=== PATIENT | female | born 1990 | race Caucasian/White ===

== ENCOUNTER 2021-01-03 13:17 | Emergency (ER) | payer OTHER, SELFPAY ==
[2021-01-03] VITALS (8 sets, daily range): BP systolic 114–135; BP diastolic 72–81; PULSE 74–88; RESP 16–20; TEMP 36.7–36.8; O2SAT 99–100
--- NOTE | ~2021-01-03 | US_ITS ---
EXAMINATION: US OB follow up DATE: 01/03/2021 14:31 INDICATION: Pelvic pain. TECHNIQUE: Real-time ultrasound of the pelvis was performed. COMPARISON: None. FINDINGS: There is a single living fetus in transverse lie. The placenta is posterior, 4.3 cm from the cervix. heart rate is 142 beats per minute (bpm). The cervical length is normal on transabdominal imag es. The amniotic fluid volume is subjectively normal. The following biometric data were obtained: Biparietal diameter (BPD): 4.2 cm; head circumference (HC): 15.5 cm; abdominal circumference (AC): 13 .5 cm; femur length (FL): 2.9 cm. These measurements are concordant. Estimated weight is 258 g +/- 39 g, which correlates with 83rd percentile when 06/05/21 is used as estimated date of delivery. As single measurements, these parameters are each equal to the following estimated gestational ages: BPD: 18 weeks 5 days. HC: 18 weeks 3 days. AC: 18 weeks 6 days. FL: 18 weeks 5 days. estimated gestational age based solely on measurements from this exam is 18 weeks 5 days +/- 1 weeks 2 days. IMPRESSION: 1. Single living fetus in transverse lie. 2. Estimated weight is 258 g +/- 39 g, which correlates with 83rd percentile when 06/05/21 is u sed as estimated date of delivery. Reviewed, dictated and finalized at location A. [employer] IMPRESSION: 1. Single living fetus in transverse lie. 2. Estimated weight is 258 g +/- 39 g, which correlates with 83rd percen tile when 06/05/21 is used as estimated date of delivery.
[2021-01-03] MEDS: SODIUM CHLORIDE 0.9% IV 1,000 ML 999 ML IV CONT (15:00)
[2021-01-03 15:07] LABS: Add Urine Microscopic? YES; Appearance Urine Cloudy (Clear); Bacteria Urine Trace /hpf; Bilirubin Urine Negative (Negative); Blood Urine Negative (Negative); Color Urine Yellow (Yellow); Glucose Urine UA Negative (Negative); Ketones Urine Trace mg/dL (Negative); Leukocyte Esterase Ur 2+ LEU/UL (Negative); Mucus Urine Rare /lpf; Nitrate Urine Negative (Negative); Protein Urine Negative (Negative); Specific Grav Ur 1.005 (1.001-1.035); Squamous Epithelial Cell Urine Few /hpf (Few); Urobilinogen Urine Negative mg/dL (<2.0)
[2021-01-03 15:21] LABS: Basophils Percent Auto 0.3 % (0.2-1.2); Eosinophils Absolute Auto 0.4 K/mm3 (0-0.3); Eosinophils Percent Auto 4.1 % (0-4.4); Hematocrit 33.3 % (37.0-47.0); Hemoglobin 11.5 g/dL (12.0-15.0); Immature Granulocyte Absolute 0.04 K/mm3 (0.00-0.031); Immature Granulocyte Percent A 0.4 % (0-0.5); Lymphocytes Absolute Auto 1.52 K/mm3 (0.9-3.2); Lymphocytes Percent Auto 14.5 % (18.3-44.2); Mean Corpuscular HGB Conc 34.5 g/dl (32-36); Mean Corpuscular Hemoglobin 30.5 pg (26-34); Mean Corpuscular Volume 88.3 fl (80-100); Mean Platelet Volume 9.8 fl (7.4-10.4); Monocytes Absolute Auto 0.7 K/mm3 (0.1-0.6); Monocytes Percent Auto 6.2 % (2.6-8.5); Neutrophils Absolute Auto 7.8 K/mm3 (1.3-6.7); Neutrophils Percent Auto 74.5 % (45.5-73.1); Platelet Count Result 193 k/mm3 (150-375); Red Blood Count 3.77 M/mm3 (4.2-5.4); Red Cell Distribution Width 13.2 % (11.5-14.5); White Blood Count 10.5 K/mm3 (4.5-10.0)
[2021-01-03 15:38] LABS: Alanine Aminotransferase 12 U/L (4-35); Alkaline Phosphatase 56 U/L (38-126); Anion Gap 7 mmol/L (8-16); Aspartate Amino Transferase 22 U/L (14-36); Bilirubin,Total 0.1 mg/dL (0.2-1.3); Blood Urea Nitrogen 8 mg/dL (7-17); Calcium 9.2 mg/dL (8.4-10.2); Carbon Dioxide 24 mmol/L (22-30); Chloride 105 mmol/L (98-107); Estimated CRCL calculation 168 ml/min; Estimated Glomerular Filt Rate > 60; Glucose 83 mg/dL (65-110); Potassium 3.7 mmol/L (3.4-5.0); Sodium 136 mmol/L (137-145)
--- NOTE | 2021-01-03 15:58 | ED.ABDPAIN ---
HPI - Abdominal Pain General Chief Complaint: Abdominal Pain Stated Complaint: 18 weeks , cramping Time Seen by Provider: 01/03/21 13:58 Source: patient History of Present Illness HPI narrative: Patient is prior 6 weeks miscarriage is approximately 18 weeks by LMP presents with abdominal pain. Pain started. Has been getting worse with Dr. STORM referred to the ER for evaluation. She reports scant vaginal discharge has been stable throughout her denies any vaginal bleeding she denies any urinary symptoms denies any trauma lightheadedness or dizziness Related Data Home Medications Medication Instructions Recorded Confirmed fluoxetine [Prozac] 20 mg PO DAILY 01/03/21 (w/o vit A)-Fe fum-FA tablet PO 01/03/21 [PreCare ] Allergies Allergy/AdvReac Type Severity Reaction Status Date / Time No Known Allergies Allergy Verified 01/03/21 13:43 Review of Systems Review of Systems: CONSTITUTIONAL: Denies fever, chills, or sweats. EYES: Denies visual changes, redness, or discharge. ENT: Denies rhinorrhea, congestion, sore throat, or otalgia. CARDIOVASCULAR: Denies chest pain, palpitations, or edema. RESPIRATORY: Denies cough or dyspnea. GASTROINTESTINAL: Denies nausea, vomiting, or diarrhea. GENITOURINARY: Denies dysuria or hematuria. SKIN: Denies rash or itching. MUSCULOSKELETAL: Denies back pain, joint pain, or myalgia. NEUROLOGIC: Denies headache, numbness, dizziness, or weakness. PSYCHIATRIC: Denies anxiety or depression. All systems reviewed & are unremarkable except as noted in HPI and below PMFSH Past Medical History Medical History (Updated 01/03/21 @ 16:07 by George Etienne MD) Prior miscarriage with in first trimester, antepartum Social History Social History (Updated 01/03/21 @ 16:05 by George Etienne MD) Smoking status: Never smoker Exam Narrative: GENERAL: Well-appearing, well-nourished, and in no acute distress. HEAD: Normocephalic, atraumatic. EYES: PERRLA and EOMI. ENT: Nares clear, no rhinorrhea or epistaxis. Mucous membranes moist. NECK: Supple. No masses. No JVD ABDOMEN: Mild diffuse tenderness with deep palpation no rebound or guarding soft, nondistended, normal active bowel sounds. EXTREMITIES: Normal range of motion. No edema. SKIN: Warm, dry, no rash. NEURO: No focal deficits. Alert and oriented x3. PSYCH: Normal mood and affect. Course Reevaluation(s) Reevaluation #1: Patient reports feeling improved results and plan reviewed with patient. Patient comfortable with outpatient plan. Date: 01/03/21 Time: 16:05 Vital Signs Vital signs: Vital Signs Temperature 36.7 C 01/03/21 13:25 Pulse Rate 80 01/03/21 13:25 Respiratory Rate 18 01/03/21 13:25 Blood Pressure 135/81 01/03/21 13:25 Pulse Oximetry 100 01/03/21 13:25 Temperature 36.7 C 01/03/21 13:25 Pulse Rate 80 01/03/21 13:25 Respiratory Rate 18 01/03/21 13:25 Blood Pressure 135/81 01/03/21 13:25 Pulse Oximetry 100 01/03/21 13:25 MDM - Abdominal Pain MDM Narrative Medical decision making narrative: H&P as above, vss, pt looks clinically well, exam nonacute abdomen, labs clinically unremarkable, img with viable IUP, additional labs/img considered, symptomatic relief available as needed, on reevaluation pt continues to looks clinically well. Suspect pain related to , dns miscarriage, ectopic, abruption, perforation. plan to tx/monitor as op w/ OB f/u findings/plan discussed with pt, pt agree/comfortable with plan, return precautions given Lab Data Result diagrams: 01/03/21 15:03 01/03/21 15:03 Labs: Lab Results 01/03/21 01/03/21 01/03/21 Range/Units 14:56 14:58 15:03 WBC 10.5 H (4.5-10.0) K/mm3 RBC 3.77 L (4.2-5.4) M/mm3 Hgb 11.5 L (12.0-15.0) g/dL Hct 33.3 L (37.0-47.0) % MCV 88.3 (80-100) fl MCH 30.5 (26-34) pg MCHC 34.5 (32-36) g/dl RDW 13.2 (11.5-14
== END 2021-01-03 16:30 | disposition home or self-care (01) ==
PROVIDERS: Emergency Provider Emergency Medicine; PCP Family Medicine
DX: O26.892 Other specified pregnancy related conditions, second trimester (principal); R10.9 Unspecified abdominal pain; Z3A.18 18 weeks gestation of pregnancy
CPT/HCPCS: 36415; 76816; 80053; 81001; 84702; 85025; 86900; 86901; 96360; 99284; J7030

== ENCOUNTER 2021-04-27 12:22 | Observation (INO) | payer OTHER, SELFPAY ==
[2021-04-27 12:57] VITALS: BMI 40.7
--- NOTE | 2021-04-27 12:57 | OBADM ---
This patient, Shyanne Kincaid, admitted to the OB room OB Post 111 for observation. Patient/family oriented to hospital policies and general routines including ID bracelet, bed and alarms, visiting hours, pain management, procedures, bathroom and other care routines, personal items, smoking policy, room service/diet, and visiting hours. Patient/Family are encouraged to report perceived risks to care and to ask questions if they do not understand what they are told or what they should do.
[2021-04-27 13:07] VITALS: BP 136/81; PULSE 82
[2021-04-27 13:16] VITALS: BP 124/82; PULSE 79
[2021-04-27 13:31] VITALS: BP 128/86; PULSE 82
[2021-04-27 13:46] LABS: Add Urine Microscopic? YES; Appearance Urine Cloudy (Clear); Bacteria Urine 1+ /hpf; Bilirubin Urine Negative (Negative); Blood Urine Negative (Negative); Color Urine Yellow (Yellow); Glucose Urine UA Negative (Negative); Ketones Urine Negative (Negative); Leukocyte Esterase Ur 2+ LEU/UL (Negative); Mucus Urine Rare /lpf; Nitrate Urine Negative (Negative); Protein Urine Negative (Negative); Specific Grav Ur 1.012 (1.001-1.035); Squamous Epithelial Cell Urine Many /hpf (Few); Urobilinogen Urine Negative mg/dL (<2.0); WBC Urine >75 /hpf
[2021-04-27 14:01] VITALS: BP 119/84; PULSE 80
[2021-04-27 14:31] VITALS: BP 122/86; PULSE 75
--- NOTE | 2021-04-30 21:05 | PM.OBTRLD ---
OB - Triage/Final Diagnosis Visit Information Comments/Additional reasons for admission: I have assessed the risk for this patient, Shyanne Kincaid, and determined that she would benefit from observation care. Evaluation Laboratory results: Laboratory Tests 04/27/21 13:11 Urine Color Yellow Urine Appearance Cloudy H Urine pH 7.0 Ur Specific [place] 1.012 Urine Protein Negative Urine Glucose (UA) Negative Urine Ketones Negative Ur Blood (Man) Negative Urine Nitrate Negative Urine Bilirubin Negative Urine Urobilinogen Negative Leukocyte Esterase Rfl 2+ H Urine RBC 3-5 H Urine WBC >75 H Ur Squamous Epith Cells Many H Urine Bacteria 1+ H Urine Mucus Rare Final Diagnosis (1) Nausea/vomiting in : Code(s): O21.9 - Vomiting of , unspecified Status: Acute
== END 2021-04-27 14:38 | disposition home or self-care (01) ==
PROVIDERS: Admitting Provider Obstetrics & Gynecology; PCP Family Medicine; Visit Provider Obstetrics & Gynecology
DX: O21.9 Vomiting of pregnancy, unspecified (principal); Z3A.34 34 weeks gestation of pregnancy
CPT/HCPCS: 81001; 84112; 87077; 87086; 87088; G0378; G0379

== ENCOUNTER 2021-05-22 14:41 | Observation (INO) | payer OTHER, SELFPAY ==
--- NOTE | 2021-05-22 15:28 | OBADM ---
This patient, Shyanne Kincaid, admitted to the OB room Labor/Delivery/Recovery 106 for observation. Patient/family oriented to hospital policies and general routines including ID bracelet, bed and alarms, visiting hours, pain management, procedures, bathroom and other care routines, personal items, smoking policy, room service/diet, and visiting hours. Patient/Family are encouraged to report perceived risks to care and to ask questions if they do not understand what they are told or what they should do.
--- NOTE | 2021-06-05 07:40 | PM.OBTRLD ---
OB - Triage/Final Diagnosis Visit Information Comments/Additional reasons for admission: I have assessed the risk for this patient, Shyanne Kinacid, and determined that she would benefit from observation care. Final Diagnosis (1) Gestational hypertension: Code(s): O13.9 - Gestational [-induced] hypertension without significant proteinuria, unspecified trimester Status: Acute
== END 2021-05-22 15:45 | disposition home or self-care (01) ==
PROVIDERS: Admitting Provider Obstetrics & Gynecology; PCP Family Medicine; Visit Provider Obstetrics & Gynecology
DX: O13.3 Gestational [pregnancy-induced] hypertension without significant proteinuria, third trimester (principal); Z3A.38 38 weeks gestation of pregnancy
CPT/HCPCS: G0378; G0379

== ENCOUNTER 2021-05-28 14:30 | Inpatient (IN) | payer OTHER, SELFPAY ==
[2021-05-28] VITALS (18 sets, daily range): BP systolic 137–153; BP diastolic 84–95; PULSE 65–100; BMI 39.4
[2021-05-28 15:11] LABS: Basophils Percent Auto 0.4 % (0.2-1.2); Eosinophils Absolute Auto 0.3 K/mm3 (0-0.3); Eosinophils Percent Auto 3.7 % (0-4.4); Hematocrit 32.9 % (37.0-47.0); Hemoglobin 11.4 g/dL (12.0-15.0); Immature Granulocyte Absolute 0.04 K/mm3 (0.00-0.031); Immature Granulocyte Percent A 0.5 % (0-0.5); Lymphocytes Absolute Auto 1.44 K/mm3 (0.9-3.2); Lymphocytes Percent Auto 17.6 % (18.3-44.2); Mean Corpuscular HGB Conc 34.7 g/dl (32-36); Mean Corpuscular Hemoglobin 30.6 pg (26-34); Mean Corpuscular Volume 88.4 fl (80-100); Mean Platelet Volume 10.8 fl (7.4-10.4); Monocytes Absolute Auto 0.6 K/mm3 (0.1-0.6); Monocytes Percent Auto 7.6 % (2.6-8.5); Neutrophils Absolute Auto 5.8 K/mm3 (1.3-6.7); Neutrophils Percent Auto 70.2 % (45.5-73.1); Platelet Count Result 167 k/mm3 (150-375); Red Blood Count 3.72 M/mm3 (4.2-5.4); Red Cell Distribution Width 13.5 % (11.5-14.5); White Blood Count 8.2 K/mm3 (4.5-10.0)
[2021-05-28 15:20] LABS: Alanine Aminotransferase 12 U/L (4-35); Albumin Level 3.7 g/dL (3.5-5.1); Alkaline Phosphatase 129 U/L (38-126); Anion Gap 6 mmol/L (8-16); Aspartate Amino Transferase 23 U/L (14-36); Bilirubin,Total 0.4 mg/dL (0.2-1.3); Blood Urea Nitrogen 5 mg/dL (7-17); Calcium 9.3 mg/dL (8.4-10.2); Carbon Dioxide 20 mmol/L (22-30); Chloride 108 mmol/L (98-107); Estimated Glomerular Filt Rate > 60; Glucose 106 mg/dL (65-110); Potassium 3.8 mmol/L (3.4-5.0); Sodium 134 mmol/L (137-145); Uric Acid 6.5 mg/dL (2.5-7.5)
[2021-05-28 15:21] LABS: Creatinine Urine 72.4 mg/dL; Total Protein Urine Random 18 mg/dL; Ur Ttl Prot Creatinine Ratio 0.25 mg/mg (0-0.20)
[2021-05-28 15:29] LABS: Add Urine Microscopic? YES; Appearance Urine Cloudy (Clear); Bacteria Urine 1+ /hpf; Bilirubin Urine Negative (Negative); Blood Urine Negative (Negative); Color Urine Yellow (Yellow); Glucose Urine UA Negative (Negative); Ketones Urine Negative (Negative); Leukocyte Esterase Ur Negative LEU/UL (NEGATIVE); Nitrate Urine Negative (Negative); Protein Urine Negative (Negative); RBC Urine 0-2 /hpf (0-2); Specific Grav Ur 1.006 (1.001-1.035); Squamous Epithelial Cell Urine Many /hpf (Few); Urobilinogen Urine Negative mg/dL (<2.0)
[2021-05-28 15:40] LABS: Mucus Urine Rare /lpf
--- NOTE | 2021-05-28 16:31 | PM.IMHP ---
H&P: HPI History of Present Illness Date/Time: 05/28/21 16:31This patient is a 31-year-old 1 at 38 and 6/7th weeks gestation who presented to Labor and delivery with elevated blood pressures from the clinic. The she denies any headache, blurry vision, epigastric pain. She denies any worsening of her swelling that was rapid. She denies any chest pain or shortness of breath. She denies any nausea, vomiting, fever, chills. Chief Complaint: Gestational hypertension Review of Systems Review of Systems: All systems reviewed & are unremarkable except as noted in HPI and below Constitutional: Constitutional: Denies chills, Denies fatigue, Denies fever(s) and Denies weakness Eyes: Eyes: Denies blurry vision, Denies change in vision, Denies loss of peripheral vision, Denies loss of vision, Denies other visual disturbances and Denies eye pain ENT: Denies vertigo, Denies dizziness, Denies hearing loss, Denies mouth pain, Denies nasal obstruction, Denies neck mass and Denies neck pain Cardiovascular: Cardiovascular: Denies chest pain, Denies diaphoresis, Denies syncope, Denies leg edema and Denies dyspnea Respiratory: Respiratory: Denies chest congestion, Denies cough, Denies hemoptysis, Denies dyspnea and Denies wheezing Gastrointestinal: Gastrointestinal: Denies abdominal pain, Denies constipation, Denies diarrhea, Denies nausea and Denies vomiting Genitourinary: Genitourinary: Denies hematuria, Denies change in libido, Denies nocturia, Denies genital lesions, Denies flank pain and Denies urinary urgency Musculoskeletal: Musculoskeletal: Denies abnormal gait, Denies back pain, Denies myalgias, Denies arthralgias, Denies joint swelling, Denies muscle weakness and Denies neck pain Integumentary/Breasts: Skin/Breast: Denies swelling, Denies breast pain, Denies breast mass, Denies dry skin, Denies nipple discharge, Denies unusual bruising and Denies jaundice Neurologic: Denies Neuro-related abnormal movements, Denies Abnormal speech present, Denies abnormal gait, Denies behavioral changes, Denies confusion, Denies vertigo, Denies dizziness, Denies syncope, Denies loss of vision, Denies memory loss, Denies convulsions and Denies weakness Psychiatric: Psychiatric: Denies abnormal sleep pattern, Denies behavioral changes, Denies change in libido, Denies confusion, Denies depression, Denies anhedonia and Denies memory loss Endocrine: Endocrine: Reports no additional endocrine complaints, Denies change in libido and Denies fatigue Hematologic/Lymphatic: Hematologic/Lymphatic: Reports no additional hematologic/lymphatic complaints Allergic/Immunologic: Allergic/Immunologic: Reports no additional allergic/immunologic complaints and Denies wheezing PMFSH Past Medical History Medical History (Updated 05/28/21 @ 16:34 by Viola Riojas MD) Prior miscarriage with in first trimester, antepartum Family History Family History (Updated 05/09/21 @ 15:31 by Maria T Vu RN) Mother Hypertension Social History Social History (Updated 01/03/21 @ 16:05 by Goerge Etienne MD) Smoking status: Never smoker Substance use: never Spiritual care concerns: No Meds Home Medications and Allergies Home Medications Medication Instructions Recorded Confirmed Type fluoxetine [Prozac] 20 mg PO DAILY 01/03/21 04/27/21 History (w/o vit A)-Fe fum-FA 1 tablet PO DAILY 01/03/21 04/27/21 History Zyrtec 10 mg PO DAILY 04/27/21 04/27/21 History ferrous sulfate 27 mg PO DAILY 04/27/21 04/27/21 History Allergies Allergy/AdvReac Type Severity Reaction Status Date / Time No Known Allergies Allergy Verified 04/27/21 13:02 Vital Signs Vital Signs - 24 hr 05/28/21 14:56 05/28/21 15:15 05/28/21 15:30 Pulse Rate 100 89 80 Blood Pressure 153/95 H 151/89 H 151/92 H 05/28/21 15:45 05/28/21 16:00 Pulse Rate 78 75 Blood Pressure 148/95 H 147/95 H Exam Const: General: cooperative, healthy appearing, comfortab
--- NOTE | 2021-05-28 17:37 | PC.NURSE ---
1430-Pt sent over from office for elevated bp's. 1645- at bedside, orders received to set pt up for cervidil induction tonight.
--- NOTE | 2021-05-28 17:52 | WPDANESEPP ---
Anes - Eval Pre Procedure Procedure: labor epidural Date/Time: 05/28/21 17:52 Surgeon: valentina Pre Op Diagnosis: PIH Labs Patient Data Age: 31 Gender: F Height: 1.68 m Weight: 111 kg Last Vital Signs Pulse 66 05/28/21 17:46 BP 146/91 H 05/28/21 17:46 Allergies Allergy/AdvReac Type Severity Reaction Status Date / Time No Known Allergies Allergy Verified 05/28/21 17:45 Home Medications Medication Instructions Recorded Confirmed Type fluoxetine [Prozac] 20 mg PO DAILY 01/03/21 05/28/21 History (w/o vit A)-Fe fum-FA 1 tablet PO DAILY 01/03/21 05/28/21 History Zyrtec 10 mg PO DAILY 04/27/21 05/28/21 History ferrous sulfate 27 mg PO DAILY 04/27/21 05/28/21 History Laboratory Tests 05/28/21 05/28/21 05/28/21 14:55 14:55 14:55 WBC 8.2 K/mm3 K/mm3 (4.5-10.0) RBC 3.72 M/mm3 L M/mm3 (4.2-5.4) Hgb 11.4 g/dL L g/dL (12.0-15.0) Hct 32.9 % L % (37.0-47.0) MCV 88.4 fl fl (80-100) MCH 30.6 pg pg (26-34) MCHC 34.7 g/dl g/dl (32-36) RDW 13.5 % % (11.5-14.5) Plt Count 167 k/mm3 k/mm3 (150-375) MPV 10.8 fl H fl (7.4-10.4) Immature Gran % (Auto) 0.5 % % (0-0.5) Neut % (Auto) 70.2 % % (45.5-73.1) Lymph % (Auto) 17.6 % L % (18.3-44.2) [place] % (Auto) 7.6 % % (2.6-8.5) Eos % (Auto) 3.7 % % (0-4.4) Baso % (Auto) 0.4 % % (0.2-1.2) Lymph # (Auto) 1.44 K/mm3 K/mm3 (0.9-3.2) [place] # (Auto) 0.6 K/mm3 K/mm3 (0.1-0.6) Eos # (Auto) 0.3 K/mm3 K/mm3 (0-0.3) Baso # (Auto) 0.0 K/mm3 K/mm3 (0.0-0.1) Abs Immat Gran (auto) 0.04 K/mm3 H K/mm3 (0.00-0.031) Absolute Neuts (auto) 5.8 K/mm3 K/mm3 (1.3-6.7) Absolute Nucleated RBC 0.0 K/mm3 K/mm3 (0.0-0.012) Nucleated RBC % 0.0 % % (0.0-0.2) Sodium Potassium Chloride Carbon Dioxide Anion Gap BUN Creatinine Estim Creat Clear Calc Estimated GFR Glucose Uric Acid Calcium Total Bilirubin AST ALT Alkaline Phosphatase Total Protein Albumin Urine Color Yellow (Yellow) Urine Appearance Cloudy H (Clear) Urine pH 7.0 (5.0-9.0) Ur Specific [place] 1.006 (1.001-1.035) Urine Protein Negative mg/dL mg/dL (Negative) Urine Glucose (UA) Negative mg/dL mg/dL (Negative) Urine Ketones Negative mg/dL mg/dL (Negative) Ur Blood (Man) Negative (Negative) Urine Nitrate Negative (Negative) Urine Bilirubin Negative (Negative) Urine Urobilinogen Negative mg/dL mg/dL (<2.0) Ur Leukocyte Esterase Negative BRENDA/UL BRENDA/UL (NEGATIVE) Urine RBC 0-2 /hpf /hpf (0-2) Urine WBC 7-9 /hpf H /hpf (0-3) Ur Squamous Epith Cells Many /hpf H /hpf (Few) Urine Bacteria 1+ /hpf H /hpf Hyaline Casts 1-2 /lpf /lpf (None) Urine Mucus Rare /lpf /lpf U Random Total Protein 18 mg/dL mg/dL Urine Creatinine 72.4 mg/dL mg/dL Protein/Creat Ratio 2 0.25 mg/mg H mg/mg (0-0.20) 05/28/21 14:55 WBC RBC Hgb Hct MCV MCH MCHC RDW Plt Count MPV Immature Gran % (Auto) Neut % (Auto) Lymph % (Auto) [place]clean % (Auto) Eos % (Auto) Baso % (Auto) Lymph # (Auto) [place] # (Auto) Eos # (Auto) Baso # (Auto) Abs Immat Gran (auto) Absolute Neuts (auto) Absolute Nucleated RBC Nucleated RBC % Sodium 134 mmol/L L mmol/L (137-145) Potassium 3.8 mmol/L mmol/
[2021-05-28] MEDS: DINOPROSTONE 10 MG VAG INSERT VAGINAL (19:14)
[2021-05-28] MEDS: LACTATED RINGERS 1,000 ML 125 ML IV CONT (19:14)
[2021-05-28] MEDS: AMPICILLIN 2 GM/NS 100 ML 2 GM/100 ML BAG IVPB (19:15)
[2021-05-28] MEDS: AMPICILLIN 1 GM/NS 50 ML 1 GM/50 ML BAG IVPB (23:13)
[2021-05-29] VITALS (137 sets, daily range): BP systolic 115–151; BP diastolic 62–114; PULSE 53–208; RESP 18; TEMP 36.2–37.2; O2SAT 97–100
[2021-05-29] MEDS: AMPICILLIN 1 GM/NS 50 ML 1 GM/50 ML BAG IVPB ×4 (03:14→16:13)
[2021-05-29] MEDS: OXYTOCIN 30 UNITS/NS 500 ML 30 UNITS/500 ML BAG IV CONT (08:00)
[2021-05-29 11:53] LABS: Rapid Plasma Reagin Non-Reactive (NonReactive)
--- OUTSIDE RECORDS SUMMARY | 2021-05-29 12:53 | XMS_ITS | Encounter Summary ---
:1990 Author Care Team Providers Name Role Phone Nelly Man Primary Care Provider [phone] Reason for Visit OB visit Pt is here today for her 39 week ob visi t. c/o pain, dark brown discharge, + swelling, +N/V and diarrhea the past 2 days. Assessment and Plan Assessment Note Patient is ___weeks . Discu ssed plan. 1. Routine care Discussion Note: None recorded.Patient educational handouts: No information available. Plan of Care Reminders Provider Appointments Ob Routine Seth Cisneros 06/04/2021 MD [facility] 4:30PM ? U/S OB BPP Ultras ound, TECH 06/04/2021 3:30PM ? Nst Nst, , EQUI P 06/04/2021 4:15PM Lab None ? ? recorded. Referral None ? ? recorded. Procedures None ? ? recorded. Surgeries None ? ? recorded. Imaging None ? ? recorded. Medications Name Start Date ? ? tyxrcmswnu-ylfbxpfwtwxva-mucxunji 50 mg-325 mg-40 mg t ablet ? Take 1 tablet every 4 hours by oral route. Fluoxetine ? fluoxetine 20 mg capsule ? TAKE 1 CAPSULE BY MOUTH ONCE DAILY
--- OUTSIDE RECORDS SUMMARY | 2021-05-29 12:53 | XMS_ITS | Encounter Summary ---
:1990 Author Care Team Providers Name Role Phone Nelly Man Primary Care Provider [phone] Reason for Visit None recorded. Assessment and Plan 1. Maternal obesity complicating , childbirth and the puerperium, antepartum ? US, obstetric, follow-up Discussion Note: None recorded.Patient educational handouts: No information available. Plan of Care Reminders Provider Appointments Ob Routine Seth Cisneros 06/04/2021 MD [facility] 4:30PM ? U/S OB BPP Ultras VERONICA lopez 06/04/2021 3:30PM ? Nst Nst, , EQUI P 06/04/2021 4:15PM Lab None ? ? recorded. Referral None ? ? recorded. Procedures None ? ? recorded. Surgeries None ? ? recorded. Imaging [place] [facility], Follow-up 04/10/2021 Medications Name Start Date ? ? lakuqilidy-nerhsdrnignyc-vphvyeyb 50 mg-325 mg-40 mg t ablet ? Take 1 tablet every 4 hours by oral route. Fluoxetine ? fluoxetine 20 mg capsule ? TAKE 1 CAPSULE BY MOUTH ONCE DAILY Nystop 100,000 unit/gram topical powder ?
--- OUTSIDE RECORDS SUMMARY | 2021-05-29 12:53 | XMS_ITS | Encounter Summary ---
:1990 Author Care Team Providers Name Role Phone Nelly Man Primary Care Provider [phone] Reason for Visit OB visit Assessment and Plan 1. Routine care Discussion Note: None recorded.Patient educational handouts: No information available. Plan of Care Reminders Provider Appointments Ob Routine Seth Cisneros 06/04/2021 MD [facility] 4:30PM ? U/S OB BPP Ultras VERONICA lopez 06/04/2021 3:30PM ? Nst Nst, OZIEL 06/04/2021 4:15PM Lab None ? ? recorded. Referral None ? ? recorded. Procedures None ? ? recorded. Surgeries None ? ? recorded. Imaging None ? ? recorded. Medications Name Start Date ? ? pogcxyuwnk-alysnbrfrnhjo-iyyxazjb 50 mg-325 mg-40 mg t ablet ? Take 1 tablet every 4 hours by oral route. Fluoxetine ? fluoxetine 20 mg capsule ? TAKE 1 CAPSULE BY MOUTH ONCE DAILY Nystop 100,000 unit/gram topical powder ? APPLY POWDER TOPICALLY TO AFFECTED AREA TWICE DAILY ondansetron HCl 4 mg tablet ? TAKE 1 TABLET BY MOUTH EVERY 4 TO 6 HOURS NEEDED Zyrtec 10 mg tablet 09/09/2017
--- OUTSIDE RECORDS SUMMARY | 2021-05-29 12:53 | XMS_ITS | Encounter Summary ---
:1990 Author Care Team Providers Name Role Phone Nelly Man Primary Care Provider [phone] Reason for Visit None recorded. Assessment and Plan 1. Maternal obesity complicating , childbirth and the puerperium, antepartum ? non-stress test Discussion Note: None recorded.Patient educational handouts: No information available. Plan of Care Reminders Provider Appointments Ob Routine Seth Cisneros 06/04/2021 MD [facility] 4:30PM ? U/S OB BPP Ultras oundVERONICA 06/04/2021 3:30PM ? Nst Nst, , EQUI P 06/04/2021 4:15PM Lab None ? ? recorded. Referral None ? ? recorded. Procedures None ? ? recorded. Surgeries None ? ? recorded. Imaging Non-stress [place] Test 05/21/2021 Medications Name Start Date ? ? qnrqmemntb-qmbarewwstktj-cybroida 50 mg-325 mg-40 mg t ablet ? Take 1 tablet every 4 hours by oral route. Fluoxetine ? fluoxetine 20 mg capsule ? TAKE 1 CAPSULE BY MOUTH ONCE DAILY Nystop 100,000 unit/gram topical powder ?
--- OUTSIDE RECORDS SUMMARY | 2021-05-29 12:53 | XMS_ITS | Encounter Summary ---
:1990 Author Care Team Providers Name Role Phone Nelly Man Primary Care Provider [phone] Reason for Visit None recorded. Assessment and [...] recorded. Surgeries None ? ? recorded. Imaging [place] [facility], Follow-up 05/08/2021 Medications Name Start Date ? ? daelyslgjv-wvrtbfhgapkai-jqcpippx 50 mg-325 mg-40 mg t ablet ? Take 1 tablet every 4 hours by oral route. Fluoxetine ? fluoxetine 20 mg capsule ? TAKE 1 CAPSULE BY MOUTH ONCE DAILY Nystop 100,000 unit/gram topical powder ?
--- OUTSIDE RECORDS SUMMARY | 2021-05-29 12:53 | XMS_ITS | Encounter Summary ---
:1990 Author Care Team Providers Name Role Phone Nelly Man Primary Care Provider [phone] Reason for Visit OB visit Assessment and Plan 1. Anxiety in 2. Group B Streptococcus carrier 3. Body mass index 30+ - obesity Discussion Note: None recorded.Patient educational handouts: No information available. Plan of Care Reminders Provider Appointments Ob Routine Seth Cisneros 06/04/2021 MD [facility] 4:30PM ? U/S OB BPP VERONICA Cooper 06/04/2021 3:30PM ? Nst Nst, , OZIEL Jones 06/04/2021 4:15PM Lab None ? ? recorded. Referral None ? ? recorded. Procedures None ? ? recorded. Surgeries None ? ? recorded. Imaging None ? ? recorded. Medications Name Start Date ? ? zqwwwhoytu-fwsvxmhattvwn-dnptukin 50 mg-325 mg-40 mg t ablet ? Take 1 tablet every 4 hours by oral route. Fluoxetine ? fluoxetine 20 mg capsule ? TAKE 1 CAPSULE BY MOUTH ONCE DAILY Nystop 100,000 unit/gram topical powder ? APPLY POWDER TOPICALLY TO AFFECTED AREA TWICE DAILY ondansetron HCl
--- OUTSIDE RECORDS SUMMARY | 2021-05-29 12:53 | XMS_ITS | Encounter Summary ---
:1990 Author Care Team Providers Name Role Phone Nelly Man Primary Care Provider [phone] Reason for Visit OB visit Assessment and Plan 1. Body mass index 30+ - obesity 2. Anxiety in 3. Routine care Discussion Note: None recorded.Patient educational handouts: No information available. Plan of Care Reminders Provider Appointments Ob Routine Seth Cisneros 06/04/2021 MD [facility] 4:30PM ? U/S OB BPP Ultras VERONICA lopez 06/04/2021 3:30PM ? Nst Nst, , OZIEL P 06/04/2021 4:15PM Lab None ? ? recorded. Referral None ? ? recorded. Procedures None ? ? recorded. Surgeries None ? ? recorded. Imaging None ? ? recorded. Medications Name Start Date ? ? rdbcfvtqwz-lndqrnwxeumre-dskbrouv 50 mg-325 mg-40 mg t ablet ? Take 1 tablet every 4 hours by oral route. Fluoxetine ? fluoxetine 20 mg capsule ? TAKE 1 CAPSULE BY MOUTH ONCE DAILY Nystop 100,000 unit/gram topical powder ? APPLY POWDER TOPICALLY TO AFFECTED AREA TWICE DAILY ondansetron HCl 4 mg t
--- OUTSIDE RECORDS SUMMARY | 2021-05-29 12:53 | XMS_ITS | Encounter Summary ---
:1990 Author Care Team Providers Name Role Phone Nelly Man Primary Care Provider [phone] Reason for Visit OB visit Assessment and [...] recorded. Medications Name Start Date ? ? fgfyaostzi-bddrfgiaocojt-lzootykl 50 mg-325 mg-40 mg t ablet ? [...]
--- OUTSIDE RECORDS SUMMARY | 2021-05-29 12:53 | XMS_ITS | Encounter Summary ---
:1990 Author Care Team Providers Name Role Phone Nelly Sotoshawna Primary Care Provider [phone] Reason for Visit OB visit OB [id number] EDC 06/05/2021 LMP 08/29/2020 Assessment and Plan Assessment Note Patient is _29__weeks . Dis cussed plan. 1. Routine care Discussion Note: None recorded.Patient educational handouts: No information available. Plan of Care Reminders Provider Appointments Ob Routine Seth Cisneros 06/04/2021 MD [facility] 4:30PM ? U/S OB BPP Ultras ouelina TECH 06/04/2021 3:30PM ? Nst Nst, , EQUI P 06/04/2021 4:15PM Lab None ? ? recorded. Referral None ? ? recorded. Procedures None ? ? recorded. Surgeries None ? ? recorded. Imaging None ? ? recorded. Medications Name Start Date ? ? lhphfhgxzc-asmjqxgdvlbnl-ubteqxdi 50 mg-325 mg-40 mg t ablet ? Take 1 tablet every 4 hours by oral route. Fluoxetine ? fluoxetine 20 mg capsule ? TAKE 1 CAPSULE BY MOUTH ONCE DAILY Nystop 100,000 unit/gram topical powder ? APPLY P
--- OUTSIDE RECORDS SUMMARY | 2021-05-29 12:53 | XMS_ITS | Encounter Summary ---
:1990 Author Care Team Providers Name Role Phone Nelly Man Primary Care Provider [phone] Reason for Visit NO NST NO CHARGE Assessment and Plan None recorded.Discussion Note: None recorded.Patient educational handouts: No information available. Plan of Care Reminders Provider Appointments Ob Routine Seth Cisneros 06/04/2021 MD [facility] 4:30PM ? U/S OB BPP VERONICA Cooper 06/04/2021 3:30PM ? Nst Nst, OZIEL 06/04/2021 4:15PM Lab None ? ? recorded. Referral None ? ? recorded. Procedures None ? ? recorded. Surgeries None ? ? recorded. Imaging None ? ? recorded. Medications Name Start Date ? ? nrmskicrjl-clhqtyubhacyw-rbwhwmpf 50 mg-325 mg-40 mg t ablet ? [...] HOURS NEEDED Zyrtec 10 mg tablet 09/09/2017 take 1 tablet by oral route every day
--- OUTSIDE RECORDS SUMMARY | 2021-05-29 12:53 | XMS_ITS | Encounter Summary ---
:1990 Author Care Team Providers Name Role Phone Nelly Man Primary Care Provider [phone] Reason for Visit None recorded. Assessment and Plan 1. Maternal obesity complicating , childbirth and the puerperium, antepartum ? US, obstetric, biophysical profile + non-stress test Discussion Note: None recorded.Patient educational handouts: No information available. Plan of Care Reminders Provider Appointments Ob Routine Seth Cisneros 06/04/2021 MD [place] 4:30PM ? U/S OB BPP Ultras ound TECH 06/04/2021 3:30PM ? Nst Nst, , EQUI P 06/04/2021 4:15PM Lab None recorded. ? ? Referral None recorded. ? ? Procedures None recorded. ? ? Surgeries None recorded. ? ? Imaging US, Obstetric, [facility] Biophysical Profile + 05/14/2021 Non-stress Test Medications Name Start Date ? ? ibibqmhwox-ftnndnmlhchcv-eoxpxzwb 50 mg-325 mg-40 mg t ablet ? Take 1 tablet every 4 hours by oral route. Fluoxetine ? fluoxetine 20 mg capsule ? TAKE 1 CAPSULE BY MOUTH ONCE DAILY
--- OUTSIDE RECORDS SUMMARY | 2021-05-29 12:53 | XMS_ITS | Encounter Summary ---
:1990 Author Care Team Providers Name Role Phone Nelly Man Primary Care Provider [phone] Reason for Visit OB visit Assessment and Plan 1. Routine care 2. Body mass index 30+ - obesity 3. Group B Streptococcus carrier Discussion Note: None recorded.Patient educational handouts: No [...] recorded. Medications Name Start Date ? ? rysefssbkc-xdgipgmeirqfo-kfortful 50 mg-325 mg-40 mg t ablet ? Take 1 tablet every 4 hours by oral route. Fluoxetine ? fluoxetine 20 mg capsule ? TAKE 1 CAPSULE BY MOUTH ONCE DAILY Nystop 100,000 unit/gram topical powder ? APPLY POWDER TOPICALLY TO AFFECTED AREA TWICE DAILY ondansetron HC
--- OUTSIDE RECORDS SUMMARY | 2021-05-29 12:53 | XMS_ITS | Encounter Summary ---
:1990 Author Care Team Providers Name Role Phone Nelly Man Primary Care Provider [phone] Reason for Visit None recorded. Assessment and [...] ? ? Imaging US, Obstetric, [facility] [place] Biophysical Profile + 05/21/2021 Non-stress Test Medications Name Start Date ? ? auhvhdmdgn-wbtsqnvjsusrx-mbjajfou 50 mg-325 mg-40 mg t ablet ? Take 1 tablet every 4 hours by oral route. Fluoxetine ? fluoxetine 20 mg capsule ? TAKE 1 CAPSULE BY MOUTH ONCE DAILY
--- OUTSIDE RECORDS SUMMARY | 2021-05-29 12:53 | XMS_ITS ---
:1990 Author Care Team Providers Name Role Phone MAIKEL MCKEON Primary Care Provider [phone] Allergies Code Code System Name Reaction Severity Status Onset NKDA ? Medications Name Status Start Date Stop Date ? ? azithromycin 500 mg tablet Completed ? 10/31 TAKE TWO TABLETS BY MOUTH ONCE FOR ONE DOSE vrbxnlniyn-ztfbhlbyxtzjt-anyrncdy Active ? Not available 50 mg-325 mg-40 mg tablet fluconazole 150 mg tablet Completed ? 2020 Fluoxetine Active ? Not available fluoxetine 20 mg capsule Active ? Not shanita ilable fluoxetine 40 mg capsule Completed ? 021 TAKE 1 CAPSULE BY MOUTH ONCE DAILY metronidazole 0.75 % vaginal gel Completed ? 12/19/2020 INSERT 1 APPLICATORFUL VAGINALLY ONCE DAILY AT BEDTIME FOR 5 DA YS nitrofurantoin monohydrate/macrocrystals 100 mg capsule Complete d ? 05/08/2021 TAKE 1 CAPSULE BY MOUTH EVERY 12 HOURS Nystop 100,000 unit/gram topical powder Active ? Not available APPLY POWDER TOPICALLY TO AFFECTED AREA TWICE DAILY ondansetron HCl 4 mg tablet Active ? Not available TAKE 1 TABLET BY MOUTH EVERY 4 TO 6 HOURS NEEDED Ortho Tri-Cyclen (28) 0.18 mg(7)/0.215 mg(7)/0.25 mg(7)-35 m cg tablet Completed 09/09/2017 10/31/2020 take 1 tablet by oral route every day promethazine 25 mg tablet Completed ? 2020 TAKE 1 TABLET BY MOUTH EVERY 6 HOURS NEEDED Prozac 10 mg capsule Completed 09/09/2017 10/31/2020 take 2 capsule by oral route every day Sing
--- OUTSIDE RECORDS SUMMARY | 2021-05-29 12:53 | XMS_ITS | Encounter Summary ---
:1990 Author Care Team Providers Name Role Phone Nelly Man Primary Care Provider [phone] Reason for Visit None recorded. Assessment and [...] ? recorded. Imaging Non-stress [place] Test 05/14/2021 Medications Name Start Date ? ? bdmgfewzag-fonszzttwadai-nalysntc 50 mg-325 mg-40 mg t ablet ? Take 1 tablet every 4 hours by oral route. Fluoxetine ? fluoxetine 20 mg capsule ? TAKE 1 CAPSULE BY MOUTH ONCE DAILY Nystop 100,000 unit/gram topical powder ?
--- OUTSIDE RECORDS SUMMARY | 2021-05-29 12:54 | XMS_ITS | Encounter Summary ---
:1990 Author Care Team Providers Name Role Phone Nelly Man Primary Care Provider [phone] Reason for Visit None recorded. Assessment and Plan 1. Uterine fibroids affecting pr egnancy ? US, obstetric, follow-up Discussion Note: None recorded.Patient educational handouts: No information available. Plan of Care Reminders Provider Appointments Ob Routine Seth Cisneros 06/04/2021 MD [place] 4:30PM ? U/S OB BPP Ultras ouVERONICA antoine 06/04/2021 3:30PM ? Nst Nst, , EQUI P 06/04/2021 4:15PM Lab None ? ? recorded. Referral None ? ? recorded. Procedures None ? ? recorded. Surgeries None ? ? recorded. Imaging , [place] Obstetric, Follow-up 03/12/2021 Medications Name Start Date ? ? hsvjfccxmt-qbalpfgttbiaz-wnousolx 50 mg-325 mg-40 mg t ablet ? Take 1 tablet every 4 hours by oral route. Fluoxetine ? fluoxetine 20 mg capsule ? TAKE 1 CAPSULE BY MOUTH ONCE DAILY Nystop 100,000 unit/gram topical powder ? APPLY POWDER TOPICALLY TO AFFECTED AREA TWICE DAILY
--- OUTSIDE RECORDS SUMMARY | 2021-05-29 12:54 | XMS_ITS | Encounter Summary ---
:1990 Author Care Team Providers Name Role Phone Nelly Man Primary Care Provider [phone] Reason for Visit OB visit Assessment and [...] recorded. Medications Name Start Date ? ? ugjvzmwpbw-vuxsmwssrczps-bgbenlxy 50 mg-325 mg-40 mg t ablet ? Take 1 tablet every 4 hours by oral route. Fluoxetine ? fluoxetine 20 mg capsule ? TAKE 1 CAPSULE BY MOUTH ONCE DAILY Nystop 100,000 unit/gram topical powder ? APPLY POWDER TOPICALLY TO AFFECTED AREA TWICE DAILY ondansetron HCl 4 mg t
[2021-05-29] MEDS: LACTATED RINGERS 1,000 ML 125 ML IV CONT ×2 (13:02→16:12)
[2021-05-29] MEDS: LORazepam (*CRX) 0.5 MG TABLET PO (14:59)
[2021-05-29] MEDS: ONDANSETRON INJ 4 MG/2 ML VIAL IV PUSH (16:12)
[2021-05-29] MEDS: FAMOTIDINE 20 MG/2 ML VIAL IV PUSH (16:21)
[2021-05-29] MEDS: SODIUM CHLORIDE 0.9% IV 300 ML 600 ML I-UTERINE (17:27)
[2021-05-29] MEDS: OXYTOCIN 30 UNITS/NS 500 ML 30 UNITS/500 ML BAG 999 UNITS IV CONT (18:35)
--- NOTE | 2021-05-29 18:50 | PM.OBPRVD ---
OB - Delivery Note Procedure Delivery date: 05/29/21 Procedure: vaginal delivery Events: Gestational Hypertension Induction method: AROM, Per Pitocin Protocol and Per Cervidil Protocol Delivery monitor: External FHT, External Uterine and Internal Uterine Route of delivery: Laceration Description: Vaginal Delivery repair: vicryl Specimen: Yes Quantitative Blood Loss (ml): 525 Anesthesia type: Epidural Disposition: Floor Narrative: uterine atony after placenta, clots removed manually and cytotec placed, in stable condition [place] Baby Date of : 05/29/21 Time of : 18:29 Weeks of gestation at delivery: 39 gender: Male Weight (pounds): 6 Weight (ounces): 13 presentation: vertex position: Left Occiput Anterior Placenta delivery description: Spontaneous Cord Vessel Description: 3 Vessels, Nuchal Cord, Loose, Reduced, Clamped/Cut and Delayed Cord Clamping score one minute: 8 score five minutes: 9 Narrative: baby skin to skin in stable condition
[2021-05-29] MEDS: OXYTOCIN 30 UNITS/NS 500 ML 30 UNITS/500 ML BAG 125 UNITS IV CONT (19:10)
[2021-05-29] MEDS: miSOPROStol 200 MCG TABLET 1000 MCG (20:02)
[2021-05-29] MEDS: ACETAMINOPHEN 325 MG TABLET 650 MG PO (20:51)
[2021-05-29] MEDS: WITCH HAZEL 40 PADS 1 PAD TOPICAL (20:51)
[2021-05-29] MEDS: BENZOCAINE 20% AER SPR (*SP) 56 GM CAN 1 SPRAY TOPICAL (20:51)
[2021-05-29] MEDS: IBUPROFEN 600 MG TABLET PO (20:51)
[2021-05-30] MEDS: IBUPROFEN 600 MG TABLET PO ×2 (03:56→15:47)
[2021-05-30 04:00] VITALS: BP 130/82; PULSE 76; RESP 18; TEMP 36.6; O2SAT 100
[2021-05-30 05:34] LABS: Hematocrit 28.9 % (37.0-47.0); Hemoglobin 9.7 g/dL (12.0-15.0)
[2021-05-30 07:05] VITALS: BP 135/94; PULSE 73; RESP 20; TEMP 36.8; O2SAT 98
--- NOTE | 2021-05-30 07:29 | PM.OBPNVD ---
OB - PN: Subj Subjective Date/time seen: 05/30/21 07:29 Patient comments: no complaints OB - PN: Obj Data Labs CBC & Chem 7: 05/30/21 03:50 05/28/21 14:55 Labs: Laboratory Results - last 24 hr 05/28/21 05/30/21 18:49 03:50 Hgb 9.7 L Hct 28.9 L RPR Non-reactive OB - PN A/P Plan day: 1 Plan: routine care Time Spent With Patient Time: Total time spent is greater than 50% in coordination of care (as documented) at patient's floor/unit and/or counseling patient: Review of Systems Review of Systems: All systems reviewed & are unremarkable except as noted in HPI and below Exam Const: General: cooperative, healthy appearing and comfortable
--- NOTE | 2021-05-30 07:52 | PC.NURSE ---
0745 - Reported to RN that mother desires to breastfeed but is in level 2. Will check with mother later regarding her pumping schedule as she is sleeping with the lights off at this time.
[2021-05-30] MEDS: POLYSACCHARIDE IRON COMPLEX 150 MG CAPSULE PO ×2 (08:00→15:46)
[2021-05-30] MEDS: FLUoxetine HCL 20 MG CAPSULE PO (08:00)
[2021-05-30] MEDS: DOCUSATE SODIUM 100 MG CAPSULE PO ×2 (08:00→15:46)
--- NOTE | 2021-05-30 08:07 | PC.NURSE ---
0807 - Reported from primary RN that patient is pumping.
[2021-05-30 08:25] VITALS: BP 135/94; PULSE 73; RESP 20; TEMP 36.8; O2SAT 98
--- NOTE | 2021-05-30 08:45 | PC.NURSE ---
On 05/30/21, the student, Alejandra Enriquez, provided care and completed [facility] documentation on this patient. I have reviewed the student's documentation and agree with the findings.
[2021-05-30 13:00] VITALS: BP 133/86; PULSE 85; RESP 18; TEMP 37.2; O2SAT 100
--- NOTE | 2021-05-30 13:20 | WPDANLDPN2 ---
Anes-Prog Note L&D Date/Time: 05/30/21 13:20 Comfortable throughout: labor Neuraxial method: epidural Epidural/Spinal procedure site: clean & non-tender Neuro status: Neuro function grossly intact. Cardiovascular status: normal Respiratory status: normal Airway patency: baseline Mental status: baseline Post-Op hydration status: normal Vital Signs: Last Vital Signs Temp 36.8 C 05/30/21 08:25 Pulse 73 05/30/21 08:25 Resp 20 05/30/21 08:25 BP 135/94 H 05/30/21 08:25 Pulse Ox 98 05/30/21 08:25 Pain score (VAS): 0 I/O: Intake & Output 05/29/21 05/30/21 05/30/21 23:59 07:59 15:59 Intake Total 2500 Output Total 94 700 Balance 2406 -700 Post-procedural complaints: none Patient feedback: Patient satisfied with anesthetic care.
--- NOTE | 2021-05-30 14:56 | PC.NURSE ---
1253 - Introductions were made and consulted with patient to assess needs related to . Mother led conversation with her experience with feeding baby so far. Parent discussed their sensitivity to infant and breathing related to infant being in level 2 for 18 hours with breathing challenges. Mother works well with her infant and parents are encouraged to work with infant and feeding signs. Reviewed good handwashing when working with , breast, nipples and how to protect the nipples with a deep latch. Encouraged understanding the benefits of skin to skin, responding to feeding cues, frequencies of feeding 8-12 times in 24 hours (approximately 2-3 hours), duration of feedings, milk production, intake/output feeding sheet and signs of adequate intake. Discussed stimulating with skin to skin, hand expressing colostrum, touch and talking to infant to encourage eating at the breast. placed skin to skin. 1330 - 1440 Reviewed positioning and alignment, supporting breast, off-centered (asymmetrical latch) and leading with the chin with big open wide gape. was not able to latch. Nipple care reviewed with optimal latching and good positioning. Mother states her latch downstairs was pinching . Comfort and healing nipples with warm, wet washcloth to rinse breast and leave to air-dry, colostrum may be left on nipples to dry but have clean hands when touching the nipple/breast. Reviewed information regarding pump care, hand washing, nipple care and pumping 8 times in 24 hours (1-2 at night) for 10-15 minutes. Reviewed stimulation consistency for improved milk production. Collection and storage of breastmilk per mom and baby guide. Encouraged mom to place skin to skin, breast massage and use hand expression and/or a breast pump in a relaxing atmosphere. Reviewed recording pumping schedule on the feeding sheet. Resources used to facilitate learning were used from the visual handout/ tool/mom and baby guide. 0.5 mls of colostrum was collected and syringe fed to infant. Mother voiced understanding responding to feeding cues, may need to stimulating infant approximately 2-3 hours from the start of the last feeding, calling for assistance if the does not latch or there is discomfort with . Reported to primary RN.
[2021-05-30 15:30] VITALS: BP 139/93; PULSE 79; RESP 16; TEMP 36.2; O2SAT 98
[2021-05-30 19:45] VITALS: BP 127/84; PULSE 66; RESP 18; TEMP 36.6; O2SAT 100
[2021-05-31] MEDS: IBUPROFEN 600 MG TABLET PO ×2 (00:27→08:42)
[2021-05-31 07:35] VITALS: BP 135/90; PULSE 70; RESP 18; TEMP 36.4; O2SAT 100
--- NOTE | 2021-05-31 07:36 | P.PNOB_ITS ---
OB - PN: Subj Subjective Date/time seen: 05/31/21 07:36 Patient comments: no complaints, pain well controlled and tolerating diet OB - PN: Obj Data Labs CBC & Chem 7: 05/30/21 03:50 05/28/21 14:55 OB - PN A/P Plan day: 2 Plan: routine care and discharge home Time Spent With Patient Time: Total time spent is greater than 50% in coordination of care (as docume nted) at patient's floor/unit and/or counseling patient: Exam Const: General: comfortable and no acute distress Resp: Effort & Inspection: normal respiratory effort Auscultation: no rales, no rhonchi and no wheezes Cardio: Rate: regular rate Heart sounds: no click, no murmurs and no rubs GI: GI Palp: Yes Soft to palpation and No Tenderness to palpation present (GI) Auscultation: normal bowel sounds Extrem: General: normal to inspection, no pedal edema and no calf tenderness
--- NOTE | 2021-05-31 07:38 | PM.OBDSVD ---
DS: Admitting Diagnosis Discharge Date Admitting Diagnosis term DS: Discharge Diagnosis Discharge Diagnosis (1) Gestational hypertension: Code(s): O13.9 - Gestational [-induced] hypertension without significant proteinuria, unspecified trimester Status: Acute OB - DS: Summary OB Procedures : NST and Ultrasound OB Procedures Intrapartum: Spontaneous Vag Delivery OB Procedures: : None Peripartum Data Delivery Method: Natural Vaginal Time Spent with Patient Time attestation: Total time spent providing and/or coordinating discharge services: DS: Data Data Completed and Pending Pending studies at discharge: Pending at discharge 05/29/21 18:34 Surgical [PTH] Routine Discharge Plan Discharge Discharging Clinician: Viola Riojas Patient Disposition: Home, Self-Care Activity: pelvic rest Diet: regular Patient Instructions: Antibiotic Form Stand Alone Forms: General Discharge Information Follow-up/Referrals: Viola Riojas MD [Physician] - Discharge Medications: Continued (w/o vit A)-Fe fum-FA 40 mg iron-1 mg Tablet 1 tablet PO DAILY RF: 0 fluoxetine [Prozac] 20 mg Capsule 20 mg PO DAILY RF: 0 ferrous sulfate 27 mg iron Tablet 27 mg PO DAILY RF: 0 Zyrtec 10 mg Capsule 10 mg PO DAILY RF: 0 Date of admission: 05/28/21 14:30 Primary Care Provider: JayceNelly Admitting Provider: Viola Riojas Attending physician on admission: Viola Riojas Condition: Stable
[2021-05-31] MEDS: DOCUSATE SODIUM 100 MG CAPSULE PO (08:42)
[2021-05-31] MEDS: POLYSACCHARIDE IRON COMPLEX 150 MG CAPSULE PO (08:42)
--- NOTE | 2021-05-31 14:45 | PC.NURSE ---
5198 Mother led the conversation with her experience and plan to feed her so far and her ability to independently latch optimally without discomfort. Reminded parents to use good handwashing technique to prevent infection and encouraged stimulating her infant with skin to skin for initiating an effective breastfeed. Mother is feeding appropriately for growth of infant and understands stimulating infant to eat if needed. has had appropriate feedings in the last 24 hours meets the outcomes for weight, output and jaundice at this time. Mother states she is confident to continue effectively her at home or when to call for assistance and denies any additional assistance or education at this time. Reinforced understanding of milk production, transition of milk, signs of adequate intake, prevention/relief of engorgement, responsive after visualizing feeding cues, the different methods of stimulating to breastfeed 2-3 hours after the start of the last feeding, community resources, medication information reviewed per [employer] and when to call a provider using the resource of the mom and baby guide/[facility] website. Mother voiced understanding of the education shared. Reported to the primary RN.
== END 2021-05-31 13:20 | disposition home or self-care (01) | DRG 807 ==
LOC: ANHLDR 05-29 08:17 → ANHOBOP 05-29 08:17 → ANHOBPP 05-29 08:17 → ANHLDR 05-29 12:50 → ANHOB2 05-29 22:25
PROVIDERS: Advanced Practice Midwife; Admitting Provider Obstetrics & Gynecology; PCP Family Medicine; Visit Provider Obstetrics & Gynecology
DX: O14.04 Mild to moderate pre-eclampsia, complicating childbirth (principal); Z37.0 Single live birth; Z3A.39 39 weeks gestation of pregnancy; O99.824 Streptococcus B carrier state complicating childbirth; O69.81X0 Labor and delivery complicated by cord around neck, without compression, not applicable or unspecified; O36.8330 Maternal care for abnormalities of the fetal heart rate or rhythm, third trimester, not applicable or unspecified; O72.1 Other immediate postpartum hemorrhage; O71.4 Obstetric high vaginal laceration alone
CPT/HCPCS: 36415; 80053; 81001; 82570; 84156; 84550; 85014; 85018; 85025; 86592; 86850; 86900; 86901; 87086; 87088; 87147; 88307; A9270; J0290; J2405; J2590; J2795; J7030; J7120